=== PATIENT | female | born 1985 | race Caucasian/White ===

== ENCOUNTER 2019-01-10 03:10 | Inpatient (IN) | payer OTHER ==
[~2019-01-10] VITALS: Ht 160 cm; Wt 95.0 kg
[~2019-01-10 03:10] MED LIST: FERR-18 PO; PREN1TAB49 PO
[2019-01-10 03:47] VITALS: Ht 160 cm; Wt 95.0 kg
[2019-01-10 03:48] VITALS: BP 131/74; PULSE 90; RESP 20
[2019-01-10] MEDS ORDERED: LACTATED RINGER'S 1,000 ML IV PRN (03:50)
[2019-01-10] MEDS ORDERED: AMPICILLIN 2 GM/NS (PMX) 100 ML IV ONE (04:00)
[2019-01-10] MEDS ORDERED: OXYTOCIN 30 UNITS/LR 500 ML IV PRN ×2 (04:00→11:30)
[2019-01-10] MEDS ORDERED: MISOPROSTOL 200 MCG TAB PR PRN ×2 (04:00→11:30)
[2019-01-10] MEDS ORDERED: OXYTOCIN 30 UNITS/LR 500 ML IV SCH ×3 (04:00→11:06)
[2019-01-10] MEDS ORDERED: LIDOCAINE 1% (MPF) 30 ML INJ INJ PRN (04:00)
[2019-01-10] MEDS ORDERED: METHYLERGONOVINE 0.2 MG INJ IM PRN (04:00)
[2019-01-10] MEDS ORDERED: IBUPROFEN 600 MG TAB PO PRN (04:00)
[2019-01-10] MEDS ORDERED: CARBOPROST 250 MCG INJ IM PRN ×2 (04:00→11:30)
[2019-01-10] MEDS ORDERED: BUTORPHANOL 2 MG INJ IV PRN (04:00)
[2019-01-10] MEDS: LACTATED RINGER'S 1,000 ML IV SCH ×2 (04:01→07:32)
--- NOTE | 2019-01-10 07:23 | HP ---
Date/Time of Note Date/Time of Note DATE: 01/10/19 TIME: 07:18 OB - History Hx of Present Free Text/Dictation January 10, 2019 Estimated Due Date: Jan 14, 2019 : 2 Para: 1 Care: Good Care Obstetrical Complications: None Other Concerns: 33-year-old G2, P1 with IUP at 39 weeks and 3 days and with GDM A1 diet control presented in active labor. care at [facility]. Reports history of GDM diet- controlled during her course otherwise denies any other complication. Past OB history significant for history of hemorrhage 6 years ago. Past Family/Social History * Past Medical, Surgical, Family and Obstetric Histories reviewed from chart. OB Admission Exam Vital Signs Vital Signs Vital Signs Date Temp Pulse Resp B/P (MAP) Pulse Ox O2 O2 Flow FiO2 Time Delivery Rate 01/10/19 98.7 90 20 131/74 Room Air 03:48 (93) Physical Exam HEENT: WNL Lungs: Clear Abdomen: WNL Extremities: Normal Cervical Dilatation: 6cm Effacement: 75% Station: -2 Membranes: Intact Heart Rate: 130's Accelerations: Accelerations Present Varibility: Moderate Contractions on Admission: < 5 Minutes Apart Intensity: Moderate Last 72 hours Lab Results CBC & BMP 01/10/19 03:45 OB Assessment/Plan Other Assessment: IUP at 39 weeks and 3 days Active labor GDM A1, diet-controlled GBS negative Admit the patient Epidural for pain control when the patient requires Management of blood sugar during labor, checking blood sugar every 2 hours during active labor. Goal of blood sugar less than 110 Anticipate PURNIMA MCKEON MD Jan 10, 2019 07:23
--- NOTE | 2019-01-10 07:51 | TRIAGE ---
OB Triage Datetime Report Generated by CPN: 01/10/2019 07:51 Datetime: 01/10/2019 07:30 Labor Evaluation Frequency: 1-3 Monitor Mode: External Duration (sec)2399: 40-120 Quality: Strong Pattern: Normal: <= 5 Contractions in 10 Minutes Resting Tone [place]: Relaxed Heart Rate FHR Baseline Rate: 160 Monitor Mode: External US FHR Baseline Changes: No Baseline Change Variability: Moderate 6-25 bpm Accelerations: 15X15 Decelerations: Variable Category: Category II Pain Assessment Pain Scale: 8 Pain Presence: Intermittent Pain Type: Contraction Pain Location: Abdomen; Back Pain Goal: 2 Pain Relief Measures: Comfort Measures Datetime: 01/10/2019 07:18 Vaginal Exam Dilatation (cms): 6.0 Effacement (%): 60 Station: -3 Exam By: MAY Datetime: 01/10/2019 07:12 Assessment Type: Ongoing Assessment Maternal Assessment Level of Consciousness: Keenly Alert, Responsive DTR's/Clonus: DTRs 2+; No Clonus Headache: Denies Blurred Vision: No Respiratory Effort: Unlabored; Regular Rhythm; Equal Expansion Nausea/Vomiting: Denies RUQ Epigastric Pain: Denies Lower Extremities Edema: Bilateral Lower Extremities Degree: None Upper Extremities Edema: None Degree: None Facial Edema: None Fall Risk Assessment History of Falling: (0) No Secondary Diagnosis: (0) No Ambulatory Aid: (0) Bedrest/Nurse Assist IV Therapy: (0) No Gait: (0) Normal/Bedrest/Immobile Mental Status: (0) Oriented to Own Ability Fall Score: 0 Fall Risk Score Definition: No Risk: No action required Datetime: 01/10/2019 07:00 Stage of : Labor Labor Evaluation Frequency: 2-4 Monitor Mode: External Duration (sec)2399: 80 Quality: Moderate Pattern: Normal: <= 5 Contractions in 10 Minutes Resting Tone [place]: Relaxed Interventions: Side to Side; IV Bolus Heart Rate FHR Baseline Rate: 160 Monitor Mode: External US FHR Baseline Changes: Return to Previous Baseline Variability: Moderate 6-25 bpm Accelerations: 15X15 Decelerations: Variable Category: Category II Datetime: 01/10/2019 06:46 Interventions: IV Bolus Decelerations: Variable Datetime: 01/10/2019 06:30 Stage of : Labor Labor Evaluation Frequency: 4-5 Monitor Mode: External Duration (sec)2399: 80 Quality: Moderate Pattern: Normal: <= 5 Contractions in 10 Minutes Resting Tone [place]: Relaxed Interventions: IV Bolus Heart Rate FHR Baseline Rate: 165 Monitor Mode: External US FHR Baseline Changes: Tachycardia Variability: Moderate 6-25 bpm Accelerations: 15X15 Decelerations: None Datetime: 01/10/2019 06:00 Stage of : Labor Labor Evaluation Frequency: 2-3 Monitor Mode: External Duration (sec)2399: 80 Quality: Moderate Pattern: Normal: <= 5 Contractions in 10 Minutes Resting Tone [place]: Relaxed Heart Rate FHR Baseline Rate: 155 Monitor Mode: External US Variability: Moderate 6-25 bpm Accelerations: 15X15 Decelerations: Early Datetime: 01/10/2019 05:43 Vaginal Exam Dilatation (cms): 6.5 Effacement (%): 80 Station: -2 Exam By: JLEAL Membrane Status: Bulging Vaginal Bleeding: None Cervix, Consistency: Soft Cervix, Position: Posterior Presentation 'A': Cephalic Datetime: 01/10/2019 05:30 Stage of : Labor Labor Evaluation Frequency: 2-6 Monitor Mode: External Duration (sec)2399: 80 Quality: Moderate Pattern: Normal: <= 5 Contractions in 10 Minutes Resting Tone [place]: Relaxed Heart Rate FHR Baseline Rate: 155 Monitor Mode: External US Variability: Moderate 6-25 bpm Accelerations: 15X15 Decelerations: None Datetime: 01/10/2019 05:00 Stage of : Labor Labor Evaluation Frequency: 2-5 Monitor Mode: External Duration (sec)2399: 80 Quality: Moderate Pattern: Normal: <= 5 Contractions in 10 Minutes Resting Tone [place]: Relaxed Heart Rate FHR Baseline Rate: 160 Monitor Mode: External US Variability: Moderate 6-25 bpm Accelerations: 15X15 Decelerations: None Datetime: 01/10/2019 04:30 Stage of : Labor Labor Evaluation Frequency: 2-5 Monitor Mode: External Duration (sec)2399: 80 Quality: Moderate Pattern: Normal: <= 5 Contractions in 10 Minutes Resting Tone [place]: Relaxed Heart Rate FHR Baseline Rate: 160 Monitor Mode: External US Variability: Moderate 6-25 bpm Accelerations: 15X15 Decelerations: None Category: Category I Datetime: 01/10/2019 04:09 Assessment Type: Admission Assessment Vaginal Bleeding: None Maternal Assessment Level of Consciousness: Keenly Alert, Responsive DTR's/Clonus: DTRs 2+; No Clonus Headache: Denies Blurred Vision: No Respiratory Effort: Unlabored; Regular Rhythm; Equal Expansion Breath Sounds, Left: Clear and Equal Breath Sounds, Right: Clear and Equal Nausea/Vomiting: Denies RUQ Epigastric Pain: Denies Lower Extremities Edema: None Degree: None Upper Extremities Edema: None Degree: None Facial Edema: None Fall Risk Assessment History of Falling: (0) No Secondary Diagnosis: (0) No Ambulatory Aid: (0) Bedrest/Nurse Assist IV Therapy: (0) No Gait: (0) Normal/Bedrest/Immobile Mental Status: (0) Oriented to Own Ability Fall Score: 0 Fall Risk Score Definition: No Risk: No action required Labor Evaluation Frequency: 3-4 Duration (sec)2399: 60-80 Quality: Moderate Pattern: Normal: <= 5 Contractions in 10 Minutes Resting Tone [place]: Relaxed Heart Rate FHR Baseline Rate: 150 Variability: Moderate 6-25 bpm Accelerations: 15X15 Decelerations: None Category: Category I Pain Assessment Pain Scale: 5 Pain Presence: Intermittent Pain Type: Contraction Pain Location: Abdomen Membrane Status: Intact Datetime: 01/10/2019 03:28 Labor Evaluation Frequency: 3.5-5 Monitor Mode: External Duration (sec)2399: 70-130 Quality: Strong Pattern: Normal: <= 5 Contractions in 10 Minutes Resting Tone [place]: Relaxed Heart Rate FHR Baseline Rate: 150 Monitor Mode: External US Variability: Moderate 6-25 bpm Datetime: 01/10/2019 03:24 Vaginal Exam Dilatation (cms): 6.0 Membrane Status: Intact Datetime: 01/10/2019 03:23 Time of Arrival: 01/10/2019 04:08 EGA: 39.3 Arrived By: Wheelchair Datetime: 01/10/2019 03:21 Stage of : OB Triage Vaginal Exam Dilatation (cms): 6.0 Effacement (%): 70 Station: -2 Exam By: HUBERT Bashir Membrane Status: Intact Vaginal Bleeding: Scant Cervix, Consistency: Soft Cervix, Position: Posterior Datetime: 01/10/2019 03:20 Stage of : OB Triage Assessment Type: Triage Time of Arrival: 01/10/2019 03:04 Arrived By: Wheelchair Arrived From: Home Chief Complaint: Bleeding _ uc's since 0200 Movement: Present Contractions: Regular Time Contractions Began: 01/10/2019 02:00 Contractions: q5mins Rupture of Membranes: Denies Vaginal Bleeding: Small Vaginal Discharge: Present Recent Sexual Intercouse: Denies Abdominal Trauma: Not Applicable Patient Complaints: Contractions; Cramping; Back Pain Time Provider Notified: 01/10/2019 05:00 Provider Notified: Initial Plan: Monitor, VE Maternal Assessment Level of Consciousness: Keenly Alert, Responsive DTR's/Clonus: DTRs 2+; No Clonus Headache: Denies Blurred Vision: No Respiratory Effort: Unlabored; Regular Rhythm; Equal Expansion Breath Sounds, Left: Clear and Equal Breath Sounds, Right: Clear and Equal Nausea/Vomiting: Denies RUQ Epigastric Pain: Denies Lower Extremities Edema: Bilateral Lower Extremities Degree: Pitting Upper Extremities Edema: None Degree: None Facial Edema: None Temperature Route: Oral Fall Risk Assessment History of Falling: (0) No Secondary Diagnosis: (0) No Ambulatory Aid: (0) Bedrest/Nurse Assist IV Therapy: (0) No Gait: (0) Normal/Bedrest/Immobile Mental Status: (0) Oriented to Own Ability Fall Score: 0 Fall Risk Score Definition: No Risk: No action required Pain Assessment Pain Scale: 5 Pain Presence: Intermittent Pain Type: Cramping; Contraction Pain Location: Abdomen; Back Pain Relief Measures: Comfort Measures
[2019-01-10] MEDS ORDERED: AMPICILLIN 1 GM/NS (PMX) 50 ML IV SCH (08:00)
--- NOTE | 2019-01-10 11:06 | LDN ---
Date/Time of Note Date/Time of Note DATE: 01/10/19 TIME: 11:04 Delivery Summary [id number] Weeks of Gestation 38 weeks Placenta Delivered: Spontaneously Meconium: none Episiotomy: No Indication for episiotomy N/A Perineal laceration: 2 Laceration repair: Second degree perineal laceration noted that repaired using 2-0 chromic after local infiltration with lidocaine with epi of about 8 cc Anesthesia type: None Estimated blood loss: 500 Sponge & Needle done & correct: Yes All needle counts correct: Yes Any foreign bodies felt in the: No Delivery Information Sex Infant Sex: female Apgars 1 Minute: 9 5 Minute: 9 Suctioning Nose & mouth suctioned at beti: Yes Delee suction performed: Yes Umbilical Cord Cord presentations: nuchal cord Nuchal cord present X: 1 Cord Blood was obtained: Yes Mother & Baby Disposition Disposition Nuchal cord x1 and around the body x1 PURNIMA WHITTINGTON MD Jan 10, 2019 11:06
[2019-01-10] MEDS ORDERED: ONDANSETRON 4 MG INJ IV PRN (11:30)
[2019-01-10] MEDS ORDERED: DIPHENHYDRAMINE 25 MG CAP PO PRN (11:30)
[2019-01-10] MEDS ORDERED: LANOLIN HPA 1 PKT TOP PRN (11:30)
[2019-01-10] MEDS ORDERED: NACL 0.9% 3 ML SYG IV SCH (11:30)
[2019-01-10] MEDS ORDERED: WITCH HAZEL/GLYCERIN PAD PR PRN (11:30)
[2019-01-10] MEDS: SENNA/DOCUSATE NA (8.6MG/50MG) TAB PO SCH ×2 (11:30→20:51)
[2019-01-10] MEDS ORDERED: ZOLPIDEM 5 MG TAB PO PRN (11:30)
[2019-01-10] MEDS ORDERED: ACETAMINOPHEN 325 MG TAB PO PRN (11:30)
[2019-01-10] MEDS ORDERED: HYDROCODONE/APAP (5/325) TAB PO PRN (11:30)
[2019-01-10] MEDS: FERROUS SULFATE (EC) 325 MG TAB PO SCH (11:30)
[2019-01-10 12:00] VITALS: BP 108/62; PULSE 70; RESP 18
[2019-01-10] MEDS: IBUPROFEN 600 MG TAB PO SCH ×3 (12:00→23:37)
[2019-01-10 16:00] VITALS: BP 112/55; PULSE 86; RESP 18
[2019-01-10 19:30] VITALS: BP 110/59; PULSE 87; RESP 18
[2019-01-10 23:30] VITALS: BP 118/63; PULSE 93; RESP 18
[2019-01-11 03:30] VITALS: BP 98/60; PULSE 90; RESP 18
[2019-01-11] MEDS: IBUPROFEN 600 MG TAB PO SCH ×4 (05:30→23:51)
[2019-01-11] MEDS ORDERED: PETROLATUM 5 GM OINT TOP ONE (10:42)
[2019-01-11] MEDS: FERROUS SULFATE (EC) 325 MG TAB PO SCH (11:44)
[2019-01-11] MEDS: SENNA/DOCUSATE NA (8.6MG/50MG) TAB PO SCH ×2 (11:44→20:50)
--- NOTE | 2019-01-11 17:48 | DS ---
Date/Time of Note Date/Time of Note DATE: 01/11/19 TIME: 17:47 Obstetrical Discharge Record Final Diagnosis Final Diagnosis: Term delivered Vaginal Delivery Obstetrical Delivery: Spontaneous Complications Augmentation: No Induction: No Rupture of Membranes: No Condition on Discharge Physical Assessment Voiding: Yes Bowel Movement: Yes Breast: Soft, non-tender, Filling Fundus: Firm Abdomen and Incision: soft, not tender Calf Tenderness: No Patient Condition: Good GRACIELA GERBER MD Jan 11, 2019 17:48
[2019-01-11 17:57] VITALS: BP 105/66; PULSE 65; RESP 18
[2019-01-11 19:45] VITALS: BP 107/59; PULSE 85; RESP 19
[2019-01-12 03:45] VITALS: BP 113/58; PULSE 76; RESP 19
[2019-01-12] MEDS: IBUPROFEN 600 MG TAB PO SCH ×2 (05:33→13:30)
[2019-01-12 08:30] VITALS: BP 109/56; PULSE 80; RESP 17
[2019-01-12] MEDS: FERROUS SULFATE (EC) 325 MG TAB PO SCH (10:30)
[2019-01-12] MEDS: SENNA/DOCUSATE NA (8.6MG/50MG) TAB PO SCH (10:31)
--- NOTE | 2019-01-13 16:23 | DELSUM ---
Delivery Summary A-C Datetime Report Generated by CPN: 01/13/2019 16:23 DELIVERY PERSONNEL Lens Blocker: [place], May MATERNAL INFORMATION Delivery Anesthesia: Local Medications in Delivery: LR WITH PITOCIN 20 UNITS Delivery QBL (ml): 590 Placenta Cultured: No Maternal Complications: Other Other Maternal Complications: GESTATIONAL DIABETES DIET CONTROLLED LABOR SUMMARY EDC: 01/14/2019 00:00 No. Babies in Womb: 1 Attempted: No Labor Anesthesia: None LABOR INFORMATION Reason for Induction: Not Applicable Onset of Labor: 01/09/2019 14:00 Complete Dilatation: 01/10/2019 09:43 Group B Beta Strep: Negative Antibiotics # of Doses: 0 Steroids Given: None Reason Steroids Not Administered: Not Applicable MEMBRANES Membranes Rupture Method: Artificial Rupture of Membranes: 01/10/2019 08:01 Length of Rupture (hr): 1.90 Amniotic Fluid Color: Clear Amniotic Fluid Amount: Small Amniotic Fluid Odor: None STAGES OF LABOR Stage 1 hr: 19 Stage 1 min: 43 Stage 2 hr: 0 Stage 2 min: 12 Stage 3 hr: 0 Stage 3 min: 3 Total Time in Labor hr: 19 Total Time in Labor min: 58 VAGINAL DELIVERY Episiotomy: None Laceration Extension: Second Degree Laceration Type: Perineal Laceration Repair: Yes Initial Vag Sponge Count: 10 Final Vag Sponge Count: 10 Initial Vag Sharps Count: 1 Final Vag Sharps Count: 2 Sponge Count Correct: Yes; Vaginal Sweep Performed Sharps Count Correct: Yes BABY A INFORMATION Infant Delivery Date/Time: 01/10/2019 09:55 Method of Delivery: Vaginal Born in Route : No : N/A Forceps: N/A Vacuum Extraction: N/A Shoulder Dystocia : N/A SHOULDER DYSTOCIA BABY A Delivery Date/Time: 01/10/2019 09:55 PRESENTATION/POSITION BABY A Presentation: Cephalic Cephalic Presentation: Vertex Vertex Position: Left Occipital Anterior Breech Presentation: N/A PLACENTA INFORMATION BABY A Placenta Delivery Time : 01/10/2019 09:58 Placenta Method of Delivery: Spontaneous Placenta Status: Delivered SCORES BABY A Heart Rate 1 min: >100 bpm Resp Effort 1 min: Good Cry Reflex Irritability 1 min: Cough/Sneeze/Pulls Away Muscle Tone 1 min: Active Motion Color 1 min: Body [place], Extremit Blue Resuscitation Effort 1 min: Tactile Stimulation SCORE 1 MIN: 9 Heart Rate 5 min: >100 bpm Resp Effort 5 min: Good Cry Reflex Irritability 5 min: Cough/Sneeze/Pulls Away Muscle Tone 5 min: Active Motion Color 5 min: Body [place], Extremit Blue Resuscitation Effort 5 min: Tactile Stimulation SCORE 5 MIN: 9 INFANT INFORMATION BABY A Gestational Age at Delivery: 39.3 Gestational Status: Full Term- 39- 40.6 Weeks Outcome : Liveborn, with signs of life Infant Condition : Stable Sex: Female IDENTIFICATION/MEDS BABY A ID Band Number: [id number] ID Band Location: Right Leg; Left Arm Sensor Applied: Yes Sensor Number: [id number] Sensor Location : Cord Clamp Vitamin K Given : Not Given Erythromycin Given: Not Given WEIGHT/LENGTH BABY A Birthweight (gm): 3580 Infant Weight (lb): 7 Infant Weight (oz): 14 Length (in): 20.00 Infant Length (cm): 50.80 CORD INFORMATION BABY A No. Cord Vessels: 3 Nuchal Cord : Around Neck x1, Loose Nuchal Cord- Other: Around body Cord Blood Taken: Yes Suction: Mouth; Nose ASSESSMENT BABY A Infant Complications: None Physical Findings at Delivery: Within Normal Limits Infant Respirations: Appears Normal Upholstery Technician/ALS Called : No Care By: Archie Schaeffer Transferred To: Remains with Mother
== END 2019-01-12 16:22 | disposition home or self-care (01) | DRG 807 ==
LOC: OBT 03:10 → L-D 03:10 → OBT 03:24 → L-D 03:24 → PP1 11:54
PROVIDERS: ADMIT Specialist; ATTEND Specialist
PROC: 10E0XZZ Delivery of Products of Conception, External Approach (ICD-10-PCS; principal; 2019-01-10)
PROC: 0KQM0ZZ Repair Perineum Muscle, Open Approach (ICD-10-PCS; 2019-01-10)
DX: O24.013 Pre-existing type 1 diabetes mellitus, in pregnancy, third trimester (principal); Z37.0 Single live birth; E10.9 Type 1 diabetes mellitus without complications; Z3A.39 39 weeks gestation of pregnancy; O70.1 Second degree perineal laceration during delivery; O69.81X0 Labor and delivery complicated by cord around neck, without compression, not applicable or unspecified; Z3A.01 Less than 8 weeks gestation of pregnancy
CPT/HCPCS: 62322; 76815; 82962; 85025; 85610; 85730; 86592; 86850; 86900; 86901; 87340; G0463; J2210; J2590; J7120